=== PATIENT | male | born 1930 | race Caucasian/White ===

== ENCOUNTER 2016-09-13 15:51 | Inpatient (IN) | payer MEDICARE, OTHER ==
[2016-09-13] MEDS ORDERED: SODIUM CHLORIDE FLUSH 0.9% 10 ML SYRINGE IVP PRN (17:36)
[2016-09-13] MEDS ORDERED: HYDROcod/ACETAM 5/325 MG TABLET PO PRN (17:36)
[2016-09-13] MEDS ORDERED: ONDANSETRON 4 MG/2 ML VIAL IVP PRN (17:36)
[2016-09-13] MEDS ORDERED: ACETAMINOPHEN 325 MG TABLET PO PRN (17:36)
[2016-09-13] MEDS ORDERED: IPRATROPIUM/ALBUTEROL 3 ML NEB INH PRN (17:36)
[2016-09-13] MEDS: SODIUM CHLORIDE 0.9% 1,000 ML IV SCH (19:05)
[2016-09-13] MEDS: PANTOPRAZOLE 40 MG TABLET PO SCH (19:30)
[2016-09-13] MEDS ORDERED: TEMAZEPAM 7.5 MG CAPSULE PO PRN (20:19)
[2016-09-13] MEDS ORDERED: MAGNESIUM SULFATE 2 GRAM 50 ML IV ONE (20:34)
[2016-09-13] MEDS ORDERED: methylPREDNISolone SUCCINATE 40 MG/ML VIAL IVP SCH (21:00)
[2016-09-13] MEDS ORDERED: PIPERACILLIN/TAZOBACTAM 4.5 GM in SODIUM CHLORIDE 0.9% MINIBAG 100 ML IV ONE (21:00)
[2016-09-13] MEDS: OLANZapine ODT 5 MG TABLET TL SCH (21:19)
[2016-09-13] MEDS: POTASSIUM CHLOR 10 MEQ/100 ML 100 ML IV SCH ×3 (21:25→23:35)
[2016-09-13] MEDS: IPRATROPIUM/ALBUTEROL 3 ML NEB INH SCH ×2 (21:45→21:50)
[2016-09-13] MEDS: PIPERACILLIN/TAZOBACTAM 4.5 GM in SODIUM CHLORIDE 0.9% MINIBAG 100 ML IV SCH (22:00)
[2016-09-13] MEDS: SODIUM CHLORIDE FLUSH 0.9% 10 ML SYRINGE IVP SCH (22:02)
[2016-09-13] MEDS: MIDODRINE 5 MG PO SCH (22:31)
[2016-09-14] MEDS: POTASSIUM CHLOR 10 MEQ/100 ML 100 ML IV SCH (00:38)
[2016-09-14] MEDS: MIN OIL/DIMETHICON/COCONUT OIL 92 GM TUBE TOP ONE ×2 (04:42→06:57)
[2016-09-14] MEDS: PIPERACILLIN/TAZOBACTAM 4.5 GM in SODIUM CHLORIDE 0.9% MINIBAG 100 ML IV SCH ×2 (05:43→17:06)
[2016-09-14] MEDS: PANTOPRAZOLE 40 MG TABLET PO SCH (06:26)
[2016-09-14] MEDS ORDERED: ENOXAPARIN 40 MG/0.4 ML SYRINGE SUBQ SCH (09:00)
[2016-09-14] MEDS ORDERED: NICOTINE 14 MG PATCH TOP SCH (09:00)
[2016-09-14] MEDS: ALBUTEROL NEB 2.5 MG/3 ML INH PRN ×3 (09:00→17:30)
[2016-09-14] MEDS: FORMOTEROL FUMARATE NEB 20 MCG/2 ML INH SCH ×2 (09:00→20:07)
[2016-09-14] MEDS: BUDESONIDE 0.5 MG/2 ML NEB INH SCH ×2 (09:00→20:07)
[2016-09-14] MEDS ORDERED: FOLIC ACID 1 MG TABLET PO SCH (09:00)
[2016-09-14] MEDS ORDERED: CHOLECALCIFEROL 1,000 UNIT TABLET PO SCH (09:00)
[2016-09-14] MEDS: SACCHAROMYCES BOULARDII 250 MG CAPSULE PO SCH ×2 (09:43→17:06)
[2016-09-14] MEDS: NICOTINE 14 MG PATCH TOP SCH (09:43)
[2016-09-14] MEDS: methylPREDNISolone SUCCINATE 40 MG/ML VIAL IVP SCH ×2 (09:43→21:22)
[2016-09-14] MEDS: CHOLECALCIFEROL 1,000 UNIT TABLET PO SCH (09:44)
[2016-09-14] MEDS: FOLIC ACID 1 MG TABLET PO SCH (09:44)
[2016-09-14] MEDS: SODIUM CHLORIDE FLUSH 0.9% 10 ML SYRINGE IVP SCH ×3 (09:50→21:23)
[2016-09-14] MEDS: MIDODRINE 5 MG PO SCH ×3 (10:33→21:23)
[2016-09-14] MEDS ORDERED: BUFFERED LIDOCAINE 10 ML SYRINGE IU ONE (16:41)
[2016-09-14] MEDS: SODIUM CHLORIDE 0.9% 1,000 ML IV SCH (17:10)
[2016-09-14] MEDS: IPRATROPIUM/ALBUTEROL 3 ML NEB INH SCH ×2 (20:00→20:07)
[2016-09-14] MEDS: OLANZapine ODT 5 MG TABLET TL SCH (21:23)
[2016-09-15] MEDS: PIPERACILLIN/TAZOBACTAM 4.5 GM in SODIUM CHLORIDE 0.9% MINIBAG 100 ML IV SCH ×3 (00:31→19:35)
[2016-09-15] MEDS: IPRATROPIUM/ALBUTEROL 3 ML NEB INH SCH ×5 (05:31→20:19)
[2016-09-15] MEDS: SODIUM CHLORIDE FLUSH 0.9% 10 ML SYRINGE IVP SCH ×3 (06:07→21:15)
[2016-09-15] MEDS: PANTOPRAZOLE 40 MG TABLET PO SCH (06:18)
[2016-09-15] MEDS: MIDODRINE 5 MG PO SCH ×3 (06:18→21:15)
[2016-09-15] MEDS: FORMOTEROL FUMARATE NEB 20 MCG/2 ML INH SCH ×2 (07:20→20:19)
[2016-09-15] MEDS: BUDESONIDE 0.5 MG/2 ML NEB INH SCH ×2 (07:20→20:19)
[2016-09-15] MEDS: NICOTINE 14 MG PATCH TOP SCH (08:20)
[2016-09-15] MEDS: SACCHAROMYCES BOULARDII 250 MG CAPSULE PO SCH ×2 (08:20→17:16)
[2016-09-15] MEDS: FOLIC ACID 1 MG TABLET PO SCH (08:20)
[2016-09-15] MEDS: methylPREDNISolone SUCCINATE 40 MG/ML VIAL IVP SCH ×2 (08:20→21:15)
[2016-09-15] MEDS: CHOLECALCIFEROL 1,000 UNIT TABLET PO SCH (08:20)
[2016-09-15] MEDS: OLANZapine ODT 5 MG TABLET TL SCH (21:15)
[2016-09-16] MEDS: SODIUM CHLORIDE 0.9% 1,000 ML IV SCH ×2 (00:39→20:54)
[2016-09-16] MEDS: PIPERACILLIN/TAZOBACTAM 4.5 GM in SODIUM CHLORIDE 0.9% MINIBAG 100 ML IV SCH ×3 (02:37→17:11)
[2016-09-16] MEDS: PANTOPRAZOLE 40 MG TABLET PO SCH (06:27)
[2016-09-16] MEDS: MIDODRINE 5 MG PO SCH ×3 (06:27→20:50)
[2016-09-16] MEDS: SODIUM CHLORIDE FLUSH 0.9% 10 ML SYRINGE IVP SCH ×3 (06:28→20:54)
[2016-09-16] MEDS: BUDESONIDE 0.5 MG/2 ML NEB INH SCH ×2 (07:14→19:10)
[2016-09-16] MEDS: IPRATROPIUM/ALBUTEROL 3 ML NEB INH SCH ×4 (07:15→21:30)
[2016-09-16] MEDS: FORMOTEROL FUMARATE NEB 20 MCG/2 ML INH SCH ×2 (07:15→19:10)
[2016-09-16] MEDS: CHOLECALCIFEROL 1,000 UNIT TABLET PO SCH (09:06)
[2016-09-16] MEDS: SACCHAROMYCES BOULARDII 250 MG CAPSULE PO SCH ×2 (09:06→17:15)
[2016-09-16] MEDS: FOLIC ACID 1 MG TABLET PO SCH (09:07)
[2016-09-16] MEDS: methylPREDNISolone SUCCINATE 40 MG/ML VIAL IVP SCH ×2 (09:08→20:49)
[2016-09-16] MEDS: NICOTINE 14 MG PATCH TOP SCH ×2 (09:09→17:16)
[2016-09-16] MEDS ORDERED: POLYETHYLENE GLYCOL 3350 17 GM PACKET PO ONE (10:00)
[2016-09-16] MEDS: MIN OIL/DIMETHICON/COCONUT OIL 92 GM TUBE TOP PRN ×2 (19:39→22:34)
[2016-09-16] MEDS: OLANZapine ODT 5 MG TABLET TL SCH (20:49)
[2016-09-17] MEDS: PIPERACILLIN/TAZOBACTAM 4.5 GM in SODIUM CHLORIDE 0.9% MINIBAG 100 ML IV SCH ×3 (01:31→15:45)
[2016-09-17] MEDS: SODIUM CHLORIDE 0.9% 1,000 ML IV SCH ×2 (02:11→21:34)
[2016-09-17] MEDS: SODIUM CHLORIDE FLUSH 0.9% 10 ML SYRINGE IVP SCH ×3 (06:48→21:31)
[2016-09-17] MEDS: PANTOPRAZOLE 40 MG TABLET PO SCH (06:48)
[2016-09-17] MEDS: MIDODRINE 5 MG PO SCH ×3 (06:48→21:31)
[2016-09-17] MEDS: IPRATROPIUM/ALBUTEROL 3 ML NEB INH SCH ×4 (07:30→21:00)
[2016-09-17] MEDS: BUDESONIDE 0.5 MG/2 ML NEB INH SCH ×2 (07:30→19:10)
[2016-09-17] MEDS: FORMOTEROL FUMARATE NEB 20 MCG/2 ML INH SCH ×2 (07:30→19:10)
[2016-09-17] MEDS: methylPREDNISolone SUCCINATE 40 MG/ML VIAL IVP SCH ×2 (08:38→21:31)
[2016-09-17] MEDS: FOLIC ACID 1 MG TABLET PO SCH (08:38)
[2016-09-17] MEDS: CHOLECALCIFEROL 1,000 UNIT TABLET PO SCH (08:38)
[2016-09-17] MEDS: SACCHAROMYCES BOULARDII 250 MG CAPSULE PO SCH ×2 (08:38→15:47)
[2016-09-17] MEDS: NICOTINE 14 MG PATCH TOP SCH (08:39)
[2016-09-17] MEDS: OLANZapine ODT 5 MG TABLET TL SCH (21:31)
[2016-09-18] MEDS: PIPERACILLIN/TAZOBACTAM 4.5 GM in SODIUM CHLORIDE 0.9% MINIBAG 100 ML IV SCH ×3 (00:54→16:41)
[2016-09-18] MEDS: PANTOPRAZOLE 40 MG TABLET PO SCH (06:14)
[2016-09-18] MEDS: MIDODRINE 5 MG PO SCH ×3 (06:14→20:11)
[2016-09-18] MEDS: SODIUM CHLORIDE FLUSH 0.9% 10 ML SYRINGE IVP SCH ×3 (06:15→20:12)
[2016-09-18] MEDS: BUDESONIDE 0.5 MG/2 ML NEB INH SCH ×2 (07:15→20:45)
[2016-09-18] MEDS: IPRATROPIUM/ALBUTEROL 3 ML NEB INH SCH ×5 (07:15→20:45)
[2016-09-18] MEDS: FORMOTEROL FUMARATE NEB 20 MCG/2 ML INH SCH ×2 (07:15→20:45)
[2016-09-18] MEDS: NICOTINE 14 MG PATCH TOP SCH (08:42)
[2016-09-18] MEDS: methylPREDNISolone SUCCINATE 40 MG/ML VIAL IVP SCH ×2 (08:42→20:10)
[2016-09-18] MEDS: SACCHAROMYCES BOULARDII 250 MG CAPSULE PO SCH ×2 (08:43→16:41)
[2016-09-18] MEDS: CHOLECALCIFEROL 1,000 UNIT TABLET PO SCH (08:43)
[2016-09-18] MEDS: FOLIC ACID 1 MG TABLET PO SCH (08:43)
[2016-09-18] MEDS: OLANZapine ODT 5 MG TABLET TL SCH (20:10)
[2016-09-18] MEDS: SODIUM CHLORIDE 0.9% 1,000 ML IV SCH (20:17)
[2016-09-19] MEDS: PIPERACILLIN/TAZOBACTAM 4.5 GM in SODIUM CHLORIDE 0.9% MINIBAG 100 ML IV SCH ×2 (00:38→08:28)
[2016-09-19] MEDS: ALBUTEROL NEB 2.5 MG/3 ML INH PRN (03:26)
[2016-09-19] MEDS: SODIUM CHLORIDE FLUSH 0.9% 10 ML SYRINGE IVP SCH (05:39)
[2016-09-19] MEDS: MIDODRINE 5 MG PO SCH (06:09)
[2016-09-19] MEDS: PANTOPRAZOLE 40 MG TABLET PO SCH (06:09)
[2016-09-19] MEDS: FORMOTEROL FUMARATE NEB 20 MCG/2 ML INH SCH (08:09)
[2016-09-19] MEDS: IPRATROPIUM/ALBUTEROL 3 ML NEB INH SCH (08:21)
[2016-09-19] MEDS: BUDESONIDE 0.5 MG/2 ML NEB INH SCH (08:21)
[2016-09-19] MEDS: NICOTINE 14 MG PATCH TOP SCH (08:27)
[2016-09-19] MEDS: FOLIC ACID 1 MG TABLET PO SCH (08:27)
[2016-09-19] MEDS: SACCHAROMYCES BOULARDII 250 MG CAPSULE PO SCH (08:27)
[2016-09-19] MEDS: CHOLECALCIFEROL 1,000 UNIT TABLET PO SCH (08:27)
[2016-09-19] MEDS: methylPREDNISolone SUCCINATE 40 MG/ML VIAL IVP SCH (08:28)
== END 2016-09-19 12:51 | DRG 177 ==
PROC: 0W993ZZ Drainage of Right Pleural Cavity, Percutaneous Approach (ICD-10-PCS; principal; 2016-09-14)
DX: J15.1 Pneumonia due to Pseudomonas (principal); J96.20 Acute and chronic respiratory failure, unspecified whether with hypoxia or hypercapnia; J47.0 Bronchiectasis with acute lower respiratory infection; J90 Pleural effusion, not elsewhere classified; C34.92 Malignant neoplasm of unspecified part of left bronchus or lung; C88.0 Waldenstrom macroglobulinemia; R77.8 Other specified abnormalities of plasma proteins; E87.6 Hypokalemia; E83.42 Hypomagnesemia; I95.89 Other hypotension; R63.0 Anorexia; R60.0 Localized edema; Z68.25 Body mass index [BMI] 25.0-25.9, adult; F41.9 Anxiety disorder, unspecified; Z87.891 Personal history of nicotine dependence; M19.90 Unspecified osteoarthritis, unspecified site; Z85.46 Personal history of malignant neoplasm of prostate; Z85.828 Personal history of other malignant neoplasm of skin; Z90.2 Acquired absence of lung [part of]; Z92.3 Personal history of irradiation; Z79.51 Long term (current) use of inhaled steroids; Z79.52 Long term (current) use of systemic steroids; Z79.899 Other long term (current) drug therapy; Z99.81 Dependence on supplemental oxygen